=== PATIENT | male | born 1995 | race Caucasian/White ===

== ENCOUNTER 2018-03-26 14:31 | Emergency (ER) | payer OTHER, SELFPAY ==
[~2018-03-26 14:31] MED LIST: Lidocaine 1% w/Epinephrine 1:100K 20 ML VIAL ONE
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
== END 2018-03-26 17:37 | disposition home or self-care (01) ==
LOC: MADERS 14:31
DX: S01.01XA Laceration without foreign body of scalp, initial encounter (principal); S00.83XA Contusion of other part of head, initial encounter; F17.210 Nicotine dependence, cigarettes, uncomplicated; Y04.0XXA Assault by unarmed brawl or fight, initial encounter
CPT/HCPCS: 12002; 70450; 70486; J2001

== ENCOUNTER 2020-11-16 21:00 | Emergency (ER) | payer SELFPAY ==
[2020-11-16] MEDS ORDERED: Sulfameth/Trimethoprim DS 800-160mg TAB ONE (21:56)
[2020-11-16] MEDS ORDERED: diphenhydrAMINE 25 MG CAP ONE (21:56)
== END 2020-11-16 22:01 | disposition home or self-care (01) ==
LOC: MADERS 21:00
DX: B08.4 Enteroviral vesicular stomatitis with exanthem (principal); L03.116 Cellulitis of left lower limb; H61.22 Impacted cerumen, left ear; F17.210 Nicotine dependence, cigarettes, uncomplicated
CPT/HCPCS: 99282

== ENCOUNTER 2022-10-09 08:38 | Emergency (ER) | payer SELFPAY ==
[2022-10-09] MEDS ORDERED: Lidocaine 4% Patch ONE (09:02)
== END 2022-10-09 09:11 | disposition home or self-care (01) ==
LOC: MADERS 08:38
DX: M54.50 Low back pain, unspecified (principal); F17.210 Nicotine dependence, cigarettes, uncomplicated
CPT/HCPCS: 99283

== ENCOUNTER 2023-06-19 11:15 | Emergency (ER) | payer SELFPAY ==
[2023-06-19] MEDS ORDERED: Lidocaine 1% PF 5 ML VIAL ONE (11:28)
== END 2023-06-19 11:17 | disposition home or self-care (01) ==
LOC: MADERS 11:15
DX: S81.011A Laceration without foreign body, right knee, initial encounter (principal); F17.210 Nicotine dependence, cigarettes, uncomplicated; W20.8XXA Other cause of strike by thrown, projected or falling object, initial encounter
CPT/HCPCS: 12002; 99282